=== PATIENT | male | born 1970 | race Caucasian/White ===

== ENCOUNTER 2016-12-28 20:21 | Emergency (ER) | payer SELFPAY ==
[2016-12-28] MEDS ORDERED: SULFAMETHOXAZOLE/TRIMETHOPRIM 800-160 MG TABLET PO ONE (22:12)
[2016-12-28] MEDS ORDERED: IBUPROFEN 600 MG TABLET PO ONE (22:12)
--- NOTE | 2016-12-28 22:14 | ER Document Report ---
ED General - General Chief Complaint: Abscess Stated Complaint: POSSIBLE ABSCESS Time Seen by Provider: 12/28/16 21:41 Notes: Patient is a 46-year-old male, current every day tobacco user, no other major medical problems who presents with 1 week of a left buttock abscess. He does describe the pain as severe severe, constant, throbbing worsened by sitting on the area or touching it. Nothing improves the pain. States he has had a small amount of purulent drainage from the area. He has not seen his primary care doctor regarding today's concerns. He denies any history of similar symptoms in the past. Denies any fever or constitutional symptoms. TRAVEL OUTSIDE OF THE [place] IN LAST 30 DAYS: No - Related Data Allergies/Adverse Reactions: Penicillins Allergy (Verified 12/28/16 22:13) Past Medical History - General Information source: Patient - Social History Smoking Status: Current Every Day Smoker Frequency of alcohol use: None Drug Abuse: None Lives with: Spouse/Significant other Family History: Reviewed & Not Pertinent Patient has suicidal ideation: No Patient has homicidal ideation: No Renal/ Medical History: Denies: Hx Peritoneal Dialysis Past Surgical History: Reports: Hx Abdominal Surgery Review of Systems - Review of Systems Notes: Constitutional: Negative for fever. HENT: Negative for sore throat. Eyes: Negative for visual changes. Cardiovascular: Negative for chest pain. Respiratory: Negative for shortness of breath. Gastrointestinal: Negative for abdominal pain, vomiting or diarrhea. Genitourinary: Negative for dysuria. Musculoskeletal: Negative for back pain. Skin: Positive for right buttock abscess Neurological: Negative for headaches, weakness or numbness. 10 point ROS negative except as marked above and in HPI. Physical Exam - Vital signs Vitals: Temp Pulse Resp BP Pulse Ox 99.5 F 109 H 18 119/73 98 12/28/16 20:51 12/28/16 20:51 12/28/16 20:51 12/28/16 20:51 12/28/16 20:51 Interpretation: Tachycardic Notes: PHYSICAL EXAMINATION: GENERAL: Well-appearing, well-nourished and in no acute distress. HEAD: Atraumatic, normocephalic. EYES: Pupils equal round and reactive to light, extraocular movements intact, sclera anicteric, conjunctiva are normal. ENT: nares patent, oropharynx clear without exudates. Moist mucous membranes. NECK: Normal range of motion, supple without lymphadenopathy LUNGS: Breath sounds clear to auscultation bilaterally and equal. No wheezes rales or rhonchi. HEART: Regular rate and rhythm without murmurs ABDOMEN: Soft, nontender, normoactive bowel sounds. No guarding, no rebound. No masses appreciated. EXTREMITIES: Normal range of motion, no pitting or edema. No cyanosis. NEUROLOGICAL: No focal neurological deficits. Moves all extremities spontaneously and on command. PSYCH: Normal mood, normal affect. SKIN: Warm, Dry, normal turgor, 5.4 cm abscess in the central proximal right buttock Course - Re-evaluation Re-evalutation: 12/28/16 22:12 Patient presents with a proximal right gluteal abscess without any evidence of a rectal abscess. This is not a pilonidal abscess as it was not at the gluteal cleft more off to the proximal right butt cheek. The area was numbed and a large incision and drainage was performed with lysis of significant number of adhesions within the capsule. Approximately 20 cc of purulent material was expressed. The wound was packed with iodoform gauze. Patient will be started on Bactrim 2 tabs twice daily for 5 days. Patient is otherwise well in appearance, vitals within normal limits, does not meet sepsis criteria at time of my assessment. At this time will discharge with return precautions and follow-up recommendations. Verbal discharge instructions given a the bedside and opportunity for questions given. Medication warnings reviewed. Patient is in agreement with this plan and has verbalized understanding of return precautions and the need for primary care follow-up in the next 24-72 hours. - Vital Signs Vital signs: Temp Pulse Resp BP Pulse Ox 98.4 F 107 H 17 129/79 H 100 12/28/16 22:15 12/28/16 22:15 12/28/16 22:15 12/28/16 22:15 12/28/16 22:15 Procedures - Incision and Drainage Right Buttock Type: Complex Anesthetic type: 1% Lidocaine mL's of anesthetic: 5 Blade size: 11 I&D procedure: Betadine prep applied, Iodoform packing placed Incision Method: Incision made by scalpel Amount/type of drainage: 20 cc purulent drainage Notes: 12/29/16 01:45 This was a complex incision and drainage that did require extensive use of forceps for loculation of internal adhesions. A small flap of skin was also removed and iodoform gauze packing was placed. Total procedure time was 35 minutes. Discharge - Discharge Clinical Impression: Abscess of right buttock Condition: Good Disposition: HOME, SELF-CARE Additional Instructions: You were seen for an abscess that required drainage. Please clean this area with soap and water twice daily and apply a topical antibiotic. Dress the area after each cleaning. Please return if you develop fever, vomiting, the pain at the site worsens, you notice spreading redness from the area, or you have any other symptoms that are concerning to you. Prescriptions: Sulfamethoxazole/Trimethoprim [Bactrim Ds Tablet] 2 tab PO BID #20 tablet
[2016-12-28 22:16] VITALS: BP 129/79
== END 2016-12-28 22:29 | disposition home or self-care (01) ==
LOC: ER 20:21
PROC: 0H98XZZ Drainage of Buttock Skin, External Approach (ICD-10-PCS; principal; 2016-12-28)
DX: L02.31 Cutaneous abscess of buttock (principal); F17.200 Nicotine dependence, unspecified, uncomplicated
CPT/HCPCS: 99283

== ENCOUNTER 2017-01-03 20:34 | Emergency (ER) | payer SELFPAY ==
[2017-01-03 20:55] VITALS: BP 115/88
--- NOTE | 2017-01-03 21:44 | ER Document Report ---
ED Skin Rash/Insect Bite/Abscs - General Mode of Arrival: Ambulatory Information source: Patient TRAVEL OUTSIDE OF THE [place] IN LAST 30 DAYS: No - HPI Patient complains to provider of: Other - abscess Quality of rash: Itchy - General Chief Complaint: Abscess Stated Complaint: ABSCESS Time Seen by Provider: 01/03/17 21:20 Notes: Patient is a 46 year old male who presents to the ED with concern for a non healing abscess on his left buttock. Patient had a previous I&D and was placed on Bactrim which he finished yesterday. Patient states he feels better but he is worried about it because it is still wide open. Patient states there is hardness around it and it is itching. Patient denies a fever. Patients adds that 2 days after his initial encounter, he had swelling in the lower part of his back that went away the next day. (MOHAMUD WICK) - Related Data Allergies/Adverse Reactions: Penicillins Allergy (Verified 01/03/17 20:55) Past Medical History - General Information source: Patient - Social History Smoking Status: Current Every Day Smoker Chew tobacco use (# tins/day): No Frequency of alcohol use: None Drug Abuse: None Family History: Reviewed & Not Pertinent Patient has suicidal ideation: No Patient has homicidal ideation: No Renal/ Medical History: Denies: Hx Peritoneal Dialysis Past Surgical History: Reports: Hx Abdominal Surgery Review of Systems - Review of Systems Constitutional: See HPI. denies: Fever EENT: No symptoms reported Cardiovascular: No symptoms reported Respiratory: No symptoms reported Gastrointestinal: No symptoms reported Genitourinary: No symptoms reported Male Genitourinary: No symptoms reported Musculoskeletal: No symptoms reported Skin: See HPI, Other - abscess Hematologic/Lymphatic: No symptoms reported Neurological/Psychological: No symptoms reported Physical Exam - Vital signs Vitals: Temp Pulse Resp BP Pulse Ox 98.8 F 91 12 115/88 H 98 01/03/17 20:52 01/03/17 20:52 01/03/17 20:52 01/03/17 20:52 01/03/17 20:52 - Notes Notes: GENERAL: Alert, interacts well. No acute distress. HEAD: Normocephalic, atraumatic. EYES: Pupils equal, round, and reactive to light. Extraocular movements intact. ENT: Oral mucosa moist, tongue midline. NECK: Full range of motion. Supple. Trachea midline. LUNGS: No respiratory distress. ABDOMEN: Non-distended. EXTREMITIES: Moves all 4 extremities spontaneously. No edema. No cyanosis. NEUROLOGICAL: Alert and oriented x3. Normal speech. PSYCH: Normal affect, normal mood. SKIN: Warm, dry, normal turgor. Area superior aspect of left buttock, not along cleft, no active purulent drainage, is somewhat tender to palpation with good granulation tissue, no fluctuance and can probe approximately 1 cm deep. It is approximately .5 cm wide in diameter. No sign of infection. (MOHAMUD WICK) Course - Re-evaluation Re-evalutation: 01/03/17 21:46 Status post incision and drainage healing well, well-drained, no evidence of premature healing, no remaining infection, no remaining drainage. Patient discharged home, instructed Epsom salts soaks and irrigation. (COURT TRAN) - Vital Signs Vital signs: Temp Pulse Resp BP Pulse Ox 98.8 F 91 12 115/88 H 98 01/03/17 20:52 01/03/17 20:52 01/03/17 20:52 01/03/17 20:52 01/03/17 20:52 Discharge - Discharge Clinical Impression: Abscess of right buttock Condition: Stable Disposition: HOME, SELF-CARE Additional Instructions: Epsom Salt Soaks Soak the wound area in a container of warm epsom salt water. If you can't get the wound area into a bucket or marcelo, use a folded towel soaked in the epsom salt solution and apply to the area. Use clean hot tap water (about the temperature of a very warm bath), mixing in about one (1) teaspoon for every pint of water. Two gallon --> 16 teaspoons Epsom Salts One gallon --> 8 teaspoons Epsom Salts Two quarts --> 4 teaspoons Epsom Salts One quart --> 2 teaspoons Epsom Salts Soak the wound for about 20 minutes while gently moving it around in the water. Repeat this four (4) times a day. You should irrigate it twice a day with the syringe, use gentle pressure. Scribe Attestation: 01/03/17 22:53 I personally performed the services described in the documentation, reviewed and edited the documentation which was dictated to the scribe in my presence, and it accurately records my words and actions. (COURT TRAN) Scribe Documentation - Scribe Written by Johnny:: johnny Camacho, 01/03/2017, 1035 acting as scribe for :: Yvonne
== END 2017-01-03 22:07 | disposition home or self-care (01) ==
LOC: ER 20:34
DX: L02.31 Cutaneous abscess of buttock (principal); F17.200 Nicotine dependence, unspecified, uncomplicated; Z98.890 Other specified postprocedural states; Z88.0 Allergy status to penicillin
CPT/HCPCS: 99282

== ENCOUNTER 2017-02-14 17:29 | Emergency (ER) | payer SELFPAY ==
[2017-02-14] MEDS ORDERED: SULFAMETHOXAZOLE/TRIMETHOPRIM 800-160 MG TABLET PO ONE (18:16)
[2017-02-14] MEDS ORDERED: LIDOCAINE 1% INJ-PF (10 MG/ML) 30 ML SDV INJ ONE (18:16)
--- NOTE | 2017-02-14 18:20 | ER Document Report ---
ED Skin Rash/Insect Bite/Abscs - General Chief Complaint: Abscess Stated Complaint: ABSCESS ON BUTT Time Seen by Provider: 02/14/17 18:04 Notes: The patient is a 46-year-old male, past medical history prior left buttock abscess 2 months ago, presents with 11 days of a right upper buttocks abscess. He said that his left buttocks abscess was I&D and he was placed on Bactrim with resolution. He denies difficulty defecating, painful defecation, blood in stool, fevers, nausea or vomiting. No history of diabetes. TRAVEL OUTSIDE OF THE [place] IN LAST 30 DAYS: No - Related Data Allergies/Adverse Reactions: Penicillins Allergy (Verified 02/14/17 17:33) Past Medical History - General Information source: Patient - Social History Smoking Status: Current Every Day Smoker Chew tobacco use (# tins/day): No Frequency of alcohol use: None Drug Abuse: None Family History: Reviewed & Not Pertinent Renal/ Medical History: Denies: Hx Peritoneal Dialysis Past Surgical History: Reports: Hx Abdominal Surgery Review of Systems - Review of Systems Notes: REVIEW OF SYSTEMS: CONSTITUTIONAL: -fevers, -chills EENT: -eye pain, -difficulty swallowing, -nasal congestion CARDIOVASCULAR:-chest pain, -syncope. RESPIRATORY: -cough, -SOB GASTROINTESTINAL: -abdominal pain, - nausea, -vomiting, -diarrhea GENITOURINARY: -dysuria, -hematuria MUSCULOSKELETAL: -back pain, -neck pain SKIN: +righ buttock abscess HEMATOLOGIC: -easy bruising or bleeding. LYMPHATIC: -swollen, enlarged glands. NEUROLOGICAL: -altered mental status or loss of consciousness, -headache, - neurologic symptoms PSYCHIATRIC: -anxiety, -depression. ALL OTHER SYSTEMS REVIEWED AND NEGATIVE. Physical Exam - Vital signs Vitals: Temp Pulse Resp BP Pulse Ox 98.9 F 90 18 120/75 99 02/14/17 17:33 02/14/17 17:33 02/14/17 17:33 02/14/17 17:33 02/14/17 17:33 - Notes Notes: PHYSICAL EXAMINATION: GENERAL: Well-appearing, well-nourished and in no acute distress. HEAD: Atraumatic, normocephalic. EYES: Pupils equal round and reactive to light, extraocular movements intact, sclera anicteric, conjunctiva are normal. ENT: nares patent, oropharynx clear without exudates. Moist mucous membranes. NECK: Normal range of motion, supple without lymphadenopathy LUNGS: Breath sounds clear to auscultation bilaterally and equal. No wheezes rales or rhonchi. HEART: Regular rate and rhythm without murmurs ABDOMEN: Soft, nontender, normoactive bowel sounds. No guarding, no rebound. No masses appreciated. EXTREMITIES: Normal range of motion, no pitting or edema. No cyanosis. NEUROLOGICAL: Cranial nerves grossly intact. Normal speech, normal gait. Normal sensory and motor exams. PSYCH: Normal mood, normal affect. SKIN: 3 cm pointed fluctuant abscess on superior right buttock, no gluteal cleft or rectal involvement Course - Re-evaluation Re-evalutation: Patient has no perirectal or anal involvement. The abscess is located over the lateral part of the buttocks. Accu-Chek normal. Abscess I&D with some purulent drainage. We will also place patient on Bactrim due to mild surrounding cellulitis and have him follow-up with the surgeon. Given very strict return precautions and he understands. - Vital Signs Vital signs: Temp Pulse Resp BP Pulse Ox 98.9 F 71 18 118/73 97 02/14/17 17:33 02/14/17 19:37 02/14/17 19:37 02/14/17 19:37 02/14/17 19:37 Procedures - Incision and Drainage Right Upper Buttock Time completed: 19:35 Type: Simple Anesthetic type: 1% Lidocaine mL's of anesthetic: 5 Blade size: 11 I&D procedure: Betadine prep applied Incision Method: Incision made by scalpel Amount/type of drainage: 7 mL serosanguinous drainage Discharge - Discharge Clinical Impression: Abscess of right buttock Condition: Stable Disposition: HOME, SELF-CARE Additional Instructions: ABSCESS: You have an abscess (boil). This a pus-forming infection, usually due to staph. Some boils may be left to drain on their own, but most require lancing. From the time the tender lump first appears, it may be three or four days before the abscess is ready to bisi. Local heat and rest help at this stage of treatment. An antibiotic may prevent spread of the infection. Once the abscess is opened, packing may be placed into it. This is done so pus is not sealed inside by premature closure of the cavity. The packing will be removed at your follow-up visit or you may be advised to remove it yourself at home. Sometimes this packing must be replaced a few times during healing. The wound will heal with surprisingly little scar. Depending on the size and location of an abscess, healing can take one to four weeks. You may shower and wash the area around the incision site two or three times a day. Antibiotics may be prescribed, but are usually not necessary after an abscess has been drained. If you develop fever, chills, worsening pain, or increasing swelling in the area, call the doctor or return immediately. POST INCISION AND DRAINAGE: You have had an incision made to allow drainage of an abscess. The incision must remain open so that pus and debris can drain from the wound. If the abscess cavity is large, packing is placed. This keeps the tissues from collapsing and trapping pus inside, while the body shrinks the cavity. The packing may need to be replaced every day or two. The physician will instruct you on the packing. Keep a bulky dressing over the area. Replace it if it becomes saturated with blood or pus. Do not disturb the packing (if present). You may shower and cleanse the area with gentle soap and warm water two or three times a day. Local warmth may be soothing, and may promote faster healing. Return if you develop high fever or chills, or if you note spreading redness, increasing swelling, or increasing tenderness. MRSA CELLULITIS: You have an infection of your skin and underlying soft tissues called cellulitis. This is due to bacteria, which can enter through any break in the skin, or even through an irritated hair follicle. Untreated, cellulitis will usually worsen and may form an abscess which requires draining. Although many bacterial organisms can cause cellulitis and abscess formations, the most likely bacteria is Methicillin-Resistant Staph Aureus, or MRSA for short. Antibiotics are required. Usually, warm packs or warm soaks, and elevation of the infected area are recommended. You should start getting better within 24 to 36 hours. Most infections respond quickly to the right medication. Follow-up care is important, however, to check for abscess (boil) formation, unsuspected foreign body, or resistant infection. If you develop fever, chills, or if the area of infection is becoming rapidly more swollen or painful, call the doctor at once. TRIMETHOPRIM-SULFA: You have been given a prescription for trimethoprim-sulfa (TMS, Septra, Bactrim). This is a combination antibiotic of the sulfa class, often used for urinary tract infections, middle ear infections, bronchitis, shigella intestinal infection, and Pneumocystis pneumonia. TMS is usually well-tolerated. Occasional side effects include nausea and decreased appetite. Septra is not recommended for infants less than two months of age. Do not take this medication if you have experienced severe side effects or allergy to sulfa medicine. You should stop this medicine at once and contact your physician if you develop any rash, joint pain, shortness of breath, bruising, or jaundice ( yellow color in the skin), or if you develop any other new or unusual symptoms. FOLLOW-UP CARE: Most simple abscesses will not require a follow up visit. If you had packing placed in the abscess, remove it as instructed by the physician. If you have been referred to a physician for follow-up care, call the physicians office for an appointment as you were instructed or within the next two days. If you experience worsening or a significant change in your symptoms, return to the Emergency Department at any time for re-evaluation. Prescriptions: Sulfamethoxazole/Trimethoprim [Bactrim Ds Tablet] 2 each PO BID 10 Days tablet Referrals: PEYTON PENNINGTON MD [ACTIVE STAFF] - Follow up as needed
[2017-02-14] MEDS ORDERED: HYDROCODONE/ACETAMINOPHEN 5-325 MG TABLET PO ONE (18:42)
[2017-02-14] MEDS ORDERED: IBUPROFEN 600 MG TABLET PO ONE (18:42)
[2017-02-14 19:41] VITALS: BP 118/73
== END 2017-02-14 19:51 | disposition home or self-care (01) ==
LOC: ER 17:29
PROC: 0H98XZZ Drainage of Buttock Skin, External Approach (ICD-10-PCS; principal; 2017-02-14)
DX: L02.31 Cutaneous abscess of buttock (principal); F17.200 Nicotine dependence, unspecified, uncomplicated; Z88.0 Allergy status to penicillin
CPT/HCPCS: 10060; 99283; 82962; J3490

== ENCOUNTER 2017-07-02 10:34 | Emergency (ER) | payer OTHER ==
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
[2017-07-02] MEDS ORDERED: ACETAMINOPHEN 325 MG TABLET PO ONE (10:58)
[2017-07-02] MEDS ORDERED: IBUPROFEN 800 MG TABLET PO ONE (10:58)
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
[2017-07-02 12:39] VITALS: BP 108/69
== END 2017-07-02 12:39 | disposition home or self-care (01) ==
LOC: ER 10:34
DX: S39.012A Strain of muscle, fascia and tendon of lower back, initial encounter (principal); R10.2 Pelvic and perineal pain; M25.552 Pain in left hip; V44.9XXA Unspecified car occupant injured in collision with heavy transport vehicle or bus in traffic accident, initial encounter; M47.9 Spondylosis, unspecified; F17.200 Nicotine dependence, unspecified, uncomplicated
CPT/HCPCS: 72110; 99283

== ENCOUNTER 2017-12-09 14:35 | Emergency (ER) | payer OTHER ==
[2017-12-09 14:39] VITALS: BP 140/80
--- NOTE | 2017-12-09 14:47 | ER Document Report ---
HPI - HPI Patient complains to provider of: Left buttocks abscess Onset: Other - 8 days Pain Level: 4 Context: 47-year-old male with a history of abscesses developed one in his left buttocks 8 days ago. It is not broken open and is very painful. He is allergic to penicillin. Associated Symptoms: None Exacerbated by: Other - Sitting Relieved by: Denies - ROS ROS below otherwise negative: Yes Systems Reviewed and Negative: Yes All other systems reviewed and negative Past Medical History - General Information source: Patient - Social History Smoking Status: Current Every Day Smoker Frequency of alcohol use: None Drug Abuse: None Occupation: Self-employed Lives with: Spouse/Significant other Family History: Reviewed & Not Pertinent - Medical History Medical History: Negative Renal/ Medical History: Denies: Hx Peritoneal Dialysis Past Surgical History: Reports: Hx Abdominal Surgery Vertical Provider Document - CONSTITUTIONAL Agree With Documented VS: Yes Exam Limitations: No Limitations - INFECTION CONTROL TRAVEL OUTSIDE OF THE [place] IN LAST 30 DAYS: No - NEURO Level of Consciousness: Alert - DERM Integumentary: Abscess - Indurated 2 cm left mid buttocks abscess with a crusted top Course - Vital Signs Vital signs: Temp Pulse Resp BP Pulse Ox 98.6 F 113 H 16 140/80 H 98 12/09/17 14:38 12/09/17 14:38 12/09/17 14:38 12/09/17 14:38 12/09/17 14:38 Procedures - Incision and Drainage Left Buttock Time completed: 16:06 Type: Simple Anesthetic type: 1% Lidocaine mL's of anesthetic: 3 I&D procedure: Betadine prep applied, Sterile dressing applied - packed with corner of 4 x 4 Incision Method: Incision made by scalpel Amount/type of drainage: large pus Discharge - Discharge Clinical Impression: Incision and drainage buttocks abscess Condition: Good Disposition: HOME, SELF-CARE Instructions: Acetaminophen, Ibuprofen (General) ([facility]), Trimethoprim-Sulfa ([facility] ), Warm Packs ([facility]) Additional Instructions: Warm compress Leave the dressing on for 2 days and then remove it After remove the dressing shower with antibiotic soap and washcloth, dry dressing Finish antibiotics Return for any worsening of the symptoms Prescriptions: Ibuprofen [Motrin 800 mg Tablet] 800 mg PO Q8HP PRN #30 tablet PRN Reason: Sulfamethoxazole/Trimethoprim [Sulfamethoxazole-Tmp Ds Tablet] 1 each PO BID # 14 tablet Forms: Return to Work
[2017-12-09] MEDS ORDERED: IBUPROFEN 800 MG TABLET PO ONE (15:09)
[2017-12-09] MEDS ORDERED: ONDANSETRON 4 MG TAB.RAPDIS PO ONE (15:09)
[2017-12-09] MEDS ORDERED: ACETAMINOPHEN 325 MG TABLET PO ONE (15:09)
[2017-12-09] MEDS ORDERED: SULFAMETHOXAZOLE/TRIMETHOPRIM 800-160 MG TABLET PO ONE (15:09)
[2017-12-09] MEDS ORDERED: LIDOCAINE 4%/TETRACAINE 0.5%/EPI 0.18% 5 ML TOPICAL SOLN TOP ONE (15:09)
== END 2017-12-09 16:09 | disposition home or self-care (01) ==
LOC: ER 14:35
DX: L02.31 Cutaneous abscess of buttock (principal); F17.200 Nicotine dependence, unspecified, uncomplicated; Z88.0 Allergy status to penicillin
CPT/HCPCS: 99283; 10060; S0119; J3490

== ENCOUNTER 2018-02-20 18:37 | Emergency (ER) | payer OTHER ==
[2018-02-20] MEDS ORDERED: ONDANSETRON HCL INJ/PF 4 MG/2 ML SDV IV ONE (18:57)
[2018-02-20] MEDS ORDERED: HYDROMORPHONE HCL INJ/PF 2 MG/ML AMPULE IV ONE ×2 (18:57→19:27)
[2018-02-20] MEDS ORDERED: VANCOMYCIN HCL INJ 1000 MG VIAL IV ONE (19:08)
[2018-02-20] MEDS ORDERED: LEVOFLOXACIN 750 MG/D5W RTU 750 MG/150 ML RTUPB IV ONE (19:08)
[2018-02-20] MEDS ORDERED: HYDROMORPHONE HCL INJ/PF 2 MG/ML AMPULE ONE ×2 (19:26→19:46)
[2018-02-20] MEDS ORDERED: CEFEPIME 2 GM/D5W RTU 2 GM/50 ML RTUPB IV ONE (19:27)
[2018-02-20 19:32] LABS: HEMATOCRIT 31.7 % (37.9-51.0); HEMOGLOBIN 10.6 g/dL (13.5-17.0); MEAN CORPUSCULAR HEMOGLOBIN 28.4 pg (27.0-33.4); MEAN CORPUSCULAR HGB CONC 33.3 g/dL (32.0-36.0); MEAN CORPUSCULAR VOLUME 85 fl (80-97); PLATELET COUNT 405 10^3/uL (150-450); RED BLOOD COUNT 3.72 10^6/uL (4.35-5.55); RED CELL DISTRIBUTION WIDTH 14.5 % (11.5-14.0); WHITE BLOOD COUNT 18.1 10^3/uL (4.0-10.5)
--- NOTE | 2018-02-20 19:33 | ER Document Report ---
ED Medical Screen (RME) - General Chief Complaint: Leg Pain Stated Complaint: LEG PAIN Time Seen by Provider: 02/20/18 18:56 Mode of Arrival: Wheelchair Information source: Patient Notes: 47-year-old man status post left lower extremity surgery (tibial fracture repair ) 1 week ago who presents with fever, excruciating (10/10) pain, and tachycardia (155). Allergies: Penicillin Patient appears ill and septic Split cast removed Obvious pus coming from wound bilaterally above the calcaneus. IV fluids started IV antibiotics (levofloxacin and vancomycin) started Dr. Sanchez of orthopedic surgery notified (attempting to send pictures via text to him). TRAVEL OUTSIDE OF THE [place] IN LAST 30 DAYS: No - Related Data Allergies/Adverse Reactions: Penicillins Allergy (Verified 02/20/18 18:38) Past Medical History Renal/ Medical History: Denies: Hx Peritoneal Dialysis Past Surgical History: Reports: Hx Abdominal Surgery, Hx Orthopedic Surgery - Lt leg Physical Exam - Vital signs Vitals: Temp Pulse Resp BP Pulse Ox 100.5 F H 155 H 30 H 167/86 H 99 02/20/18 18:57 02/20/18 18:57 02/20/18 18:57 02/20/18 18:57 02/20/18 18:57 Course - Vital Signs Vital signs: Temp Pulse Resp BP Pulse Ox 100.5 F H 155 H 30 H 167/86 H 99 02/20/18 18:57 02/20/18 18:57 02/20/18 18:57 02/20/18 18:57 02/20/18 18:57 - Laboratory Result Diagrams: 02/20/18 19:16 02/20/18 19:16
[2018-02-20] MEDS ORDERED: KETAMINE HCL INJ 500 MG/10 ML VIAL ONE (19:38)
[2018-02-20] MEDS ORDERED: VANCOMYCIN HCL INJ 500 MG VIAL ONE (19:41)
[2018-02-20 19:48] LABS: ABSOLUTE LYMPHOCYTES# (MANUAL) 0.5 10^3/uL (0.5-4.7); ABSOLUTE MONOCYTES # (MANUAL) 1.3 10^3/uL (0.1-1.4); ABSOLUTE NEUTROPHILS# (MANUAL) 16.3 10^3/uL (1.7-8.2); ANISOCYTOSIS 1+; BASOPHILS % (MANUAL) 0 % (0-2); EOSINOPHILS % (MANUAL) 0 % (0-6); LYMPHOCYTES % (MANUAL) 3 % (13-45); MONOCYTES % (MANUAL) 7 % (3-13); PLATELET COMMENT ADEQUATE; POLYCHROMASIA 1+; SEGMENTED NEUTROPHILS % (MAN) 90 % (42-78); TOTAL CELLS COUNTED 100
[2018-02-20 19:51] LABS: ALANINE AMINOTRANSFERASE 83 U/L (21-72); ALBUMIN 3.8 g/dL (3.5-5.0); ALKALINE PHOSPHATASE 128 U/L (38-126); ANION GAP 13 (5-19); ASPARTATE AMINO TRANSFERASE 59 U/L (17-59); BILIRUBIN,DIRECT 0.9 mg/dL (0.0-0.4); BILIRUBIN,TOTAL 1.3 mg/dL (0.2-1.3); BLOOD UREA NITROGEN 15 mg/dL (7-20); CALCIUM 10.1 mg/dL (8.4-10.2); CARBON DIOXIDE 25 mmol/L (22-30); CHLORIDE 94 mmol/L (98-107); GLUCOSE 121 mg/dL (75-110); SODIUM 131.6 mmol/L (137-145)
[2018-02-20] MEDS: NORMAL SALINE 1000 ML 1,000 ML IV PRN ×2 (19:58→21:15)
--- NOTE | 2018-02-20 19:58 | RADIOLOGY REPORT (SQ) ---
EXAM DESCRIPTION: TIBIA FIBULA LEFT COMPLETED DATE/TIME: 02/20/2018 7:39 pm REASON FOR STUDY: fever, pain, s/p surgery COMPARISON: None. NUMBER OF VIEWS: Two views. TECHNIQUE: Two radiographic images acquired of the left tibia and fibula to include the knee and ank le in at least one projection. LIMITATIONS: None. FINDINGS: MINERALIZATION: Normal. BONES: No acute fracture or dislocation. Posterior tibial hardware appears intact. Previous hardwar e removal from the mid tibial diaphysis and calcaneus. . SOFT TISSUES: Lateral soft tissue swelling. Small amounts of subcutaneous gas. OTHER: No other significant finding. IMPRESSION: No acute fracture or dislocation. Posterior tibial hardware appears intact. Previous h ardware removal from the mid tibial diaphysis and calcaneus.Lateral soft tissue swelling. Small amou nts of subcutaneous gas. TECHNICAL DOCUMENTATION: JOB ID: [id number] [place]-72 2010 [employer]- All Rights Reserved Reading location - IP/workstation name: [employer]
[2018-02-20] MEDS ORDERED: KETAMINE HCL INJ 500 MG/10 ML VIAL IV ONE ×3 (20:07→23:51)
--- NOTE | 2018-02-20 20:11 | ER Document Report ---
ED General - General Chief Complaint: Leg Pain Stated Complaint: LEG PAIN Time Seen by Provider: 02/20/18 18:56 Mode of Arrival: Wheelchair Notes: Patient is a 47-year-old male without chronic medical problems recent tibial fixation with calcaneal pinning who presents with fever, nausea, and severe pain to his left foot. Surgery was done at [facility] on Wednesday, patient was discharged 2 days ago. States he was doing well until last evening when he began to have progressively worsening pain. Throughout the night he states he could not sleep due to a severe, throbbing, constant pain to the right heel. Nothing improves or worsens the pain. He states the pain has only worsened since that time. He has now also complained of fever or constitutional symptoms including chills, nausea and vomiting. He has not contacted his orthopedic surgeon regarding today's concerns. TRAVEL OUTSIDE OF THE [place] IN LAST 30 DAYS: No - Related Data Allergies/Adverse Reactions: Penicillins Allergy (Verified 02/20/18 18:38) Past Medical History - General Information source: Patient - Social History Smoking Status: Current Every Day Smoker Frequency of alcohol use: Occasional Drug Abuse: None Lives with: Family Family History: Reviewed & Not Pertinent Patient has suicidal ideation: No Patient has homicidal ideation: No Renal/ Medical History: Denies: Hx Peritoneal Dialysis Past Surgical History: Reports: Hx Abdominal Surgery, Hx Orthopedic Surgery - Lt leg Review of Systems - Review of Systems Notes: Constitutional: Positive for fever. HENT: Negative for sore throat. Eyes: Negative for visual changes. Cardiovascular: Negative for chest pain. Respiratory: Negative for shortness of breath. Gastrointestinal: Negative for abdominal pain, vomiting or diarrhea. Genitourinary: Negative for dysuria. Musculoskeletal: Positive for right heel pain Skin: Positive for purulent drainage from 2 openings on the right heel Neurological: Negative for headaches, weakness or numbness. 10 point ROS negative except as marked above and in HPI. Physical Exam - Vital signs Vitals: Temp Pulse Resp BP Pulse Ox 100.5 F H 155 H 30 H 167/86 H 99 02/20/18 18:57 02/20/18 18:57 02/20/18 18:57 02/20/18 18:57 02/20/18 18:57 Interpretation: Tachycardic, Tachypneic, Febrile Notes: PHYSICAL EXAMINATION: GENERAL: Appears extremely uncomfortable, diaphoretic in obvious pain HEAD: Atraumatic, normocephalic. EYES: Pupils equal round and reactive to light, extraocular movements intact, sclera anicteric, conjunctiva are normal. ENT: nares patent, oropharynx clear without exudates. Moderately dry mucous membranes. NECK: Normal range of motion, supple without lymphadenopathy LUNGS: Breath sounds clear to auscultation bilaterally and equal. No wheezes rales or rhonchi. HEART: Regular tachycardia without murmurs ABDOMEN: Soft, nontender, normoactive bowel sounds. No guarding, no rebound. No masses appreciated. EXTREMITIES: The external fixation site over the tibia appears well-healing as does the incisional site over the tibial surface. There is copious purulent drainage coming from both the medial and lateral pin entry sites on the calcaneus. NEUROLOGICAL: No focal neurological deficits. Moves all extremities spontaneously and on command. PSYCH: Anxious, somewhat agitated SKIN: Warm, Dry, normal turgor, no rashes or lesions noted. Course - Re-evaluation Re-evalutation: 02/20/18 20:10 Patient presents documentation is delayed as I been at the patient's bedside continuously for the past 30 minutes. In summary the patient presents septic with a heart rate into the 140s, extremely ill in appearance, exuding purulent drainage from the pin sites through his left calcaneus after he had a recent surgery at [facility]. The patient does meet sepsis criteria. He is in exquisite pain. I directed pain management directly at the bedside administering a total of 3 mg of hydromorphone over approximate 20 minutes as well as 2 boluses of ketamine 10 and 12 mg respectively. This did achieve some measure of pain control as prior to this the patient was in obvious excruciating pain. I did discuss the case with Dr. Sanchez the orthopedic surgeon on-call at the bedside. He agrees that this does not appear to be a compartment syndrome, more likely a site infection and tachycardia also related to sepsis. He has recommended transfer back to [facility]. I have contacted and awaiting callback. Will continue to reassess the patient at regular intervals. His antibiotic coverage has been started with vancomycin 1.5 g, cefepime 2 g, levofloxacin was administered prior to my assessment at 750 mg. IV fluids 2 L have also been started. 02/20/18 20:35 I have spoken to the orthopedic surgeon insurance healthcare consultant at [facility] who declines transfer. States we can handle this at [place]. I again discussed with Dr. Fontanez, asked him to immediately contact Dr. Hartley and speak to him directly is clearly I am unable to effectively communicate the severity of this patient' s presentation. He does continue to be tachycardic, current heart rate has improved somewhat at 123 bpm. He does continue to be in a significant amount of pain. 02/20/18 21:48 The patient's pain appears to be much improved at this time he is resting comfortably. The patient has now been accepted by Dr. Hartley at [facility] after Dr. Sanchez spoke directly to him. 02/20/18 22:24 Patient's pain continues to be quite difficult to control. Will give an additional 20 mg of ketamine. 02/21/18 00:58 Patient's pain has remained difficult to control. Transport has arrived for patient transfer and he is appropriate at this time. - Vital Signs Vital signs: Temp Pulse Resp BP Pulse Ox 100.5 F H 155 H 30 H 167/86 H 99 02/20/18 18:57 02/20/18 18:57 02/20/18 18:57 02/20/18 18:57 02/20/18 18:57 - Laboratory Result Diagrams: 02/20/18 19:16 02/20/18 19:16 Laboratory results interpreted by me: 02/20/18 02/20/18 02/20/18 19:16 19:16 19:16 WBC 18.1 H RBC 3.72 L Hgb 10.6 L Hct 31.7 L RDW 14.5 H Seg Neuts % (Manual) 90 H Lymphocytes % (Manual) 3 L Abs Neuts (Manual) 16.3 H VBG pH VBG pCO2 Sodium 131.6 L Chloride 94 L Glucose 121 H Lactic Acid 2.7 H Direct Bilirubin 0.9 H ALT 83 H Alkaline Phosphatase 128 H 02/20/18 19:16 WBC RBC Hgb Hct RDW Seg Neuts % (Manual) Lymphocytes % (Manual) Abs Neuts (Manual) VBG pH 7.49 H VBG pCO2 34.5 L Sodium Chloride Glucose Lactic Acid Direct Bilirubin ALT Alkaline Phosphatase - Diagnostic Test Radiology reviewed: Reports reviewed Critical Care Note - Critical Care Note Total time excluding time spent on procedures (mins): 40 Comments: Critical care time spent obtaining history from patient or surrogate, discussions with consultants, development of treatment plan with patient or surrogate, evaluation of patient's response to treatment, examination of patient , ordering and performing treatments and interventions, ordering and review of laboratory studies, re-evaluation of patient's condition, ordering and review of radiographic studies and review of old charts Discharge - Discharge Clinical Impression: Intractable pain Sepsis Qualifiers: Sepsis type: sepsis due to unspecified organism Qualified Code(s): A41.9 - Sepsis, unspecified organism Postoperative infection Qualifiers: Encounter type: initial encounter Qualified Code(s): T81.4XXA - Infection following a procedure, initial encounter Condition: Fair Disposition: [facility]
[2018-02-20 20:40] LABS: VENOUS BLOOD BASE EXCESS 2.4 mmol/L; VENOUS BLOOD HCO3 25.5 mmol/L (20-32); VENOUS BLOOD PCO2 34.5 mmHg (35-63); VENOUS BLOOD PH 7.49 (7.30-7.42)
[2018-02-20] MEDS: HYDROMORPHONE HCL INJ/PF 2 MG/ML AMPULE IV PRN ×2 (21:17→22:20)
[2018-02-20] MEDS ORDERED: KETOROLAC TROMETHAMINE INJ/PF 30 MG/1 ML SDV IV ONE (23:49)
[2018-02-20] MEDS ORDERED: DIAZEPAM INJ 10 MG/2 ML DISP.SYRIN IV ONE (23:59)
[2018-02-21] MEDS: HYDROMORPHONE HCL INJ/PF 2 MG/ML AMPULE IV PRN (00:06)
[2018-02-21] MEDS ORDERED: ACETAMINOPHEN 325 MG TABLET ONE (00:58)
[2018-02-21] MEDS ORDERED: ACETAMINOPHEN 325 MG TABLET PO ONE (01:02)
[2018-02-21 04:21] VITALS: BP 146/86
== END 2018-02-21 01:07 | disposition short-term general hospital (02) ==
LOC: ER 18:37
DX: T81.4XXA Infection following a procedure, initial encounter (principal); A41.9 Sepsis, unspecified organism; Y83.8 Other surgical procedures as the cause of abnormal reaction of the patient, or of later complication, without mention of misadventure at the time of the procedure; M79.671 Pain in right foot; R50.9 Fever, unspecified; R00.0 Tachycardia, unspecified; R06.82 Tachypnea, not elsewhere classified; R11.2 Nausea with vomiting, unspecified; F17.200 Nicotine dependence, unspecified, uncomplicated; Z88.0 Allergy status to penicillin
CPT/HCPCS: 96376; 99291; 96375; 96365; 96366; 96368; 36415; 87040; 87070; 87205; 85025; 87075; 87077; 80053; 87186; 82803; 83605; 73590; J3360; J3490 ×2; J1885; J1170; J2405; J3370 ×2; J1956; J0692

== ENCOUNTER 2018-03-30 19:47 | Emergency (ER) | payer SELFPAY ==
[2018-03-30 20:06] VITALS: BP 113/67
--- NOTE | 2018-03-30 20:12 | ER Document Report ---
ED Medical Screen (RME) - General Chief Complaint: Leg Swelling Stated Complaint: POST OP PROBLEM Time Seen by Provider: 03/30/18 20:10 Notes: 45 years old male who had a left ankle fracture a month ago which was surgically fixed, presents today with swelling of the calf and lower leg. No difficulty in breathing. Examination-left leg shows swelling which is one half times of the right. Calf swelling and tenderness. TRAVEL OUTSIDE OF THE [place] IN LAST 30 DAYS: No - Related Data Allergies/Adverse Reactions: Penicillins Allergy (Verified 02/20/18 18:38) Past Medical History Renal/ Medical History: Denies: Hx Peritoneal Dialysis Past Surgical History: Reports: Hx Abdominal Surgery, Hx Orthopedic Surgery - Lt leg Physical Exam - Vital signs Vitals: Temp Pulse Resp BP Pulse Ox 97.7 F 79 18 113/67 97 03/30/18 19:56 03/30/18 19:56 03/30/18 19:56 03/30/18 19:56 03/30/18 19:56 Course - Vital Signs Vital signs: Temp Pulse Resp BP Pulse Ox 97.7 F 79 18 113/67 97 03/30/18 19:56 03/30/18 19:56 03/30/18 19:56 03/30/18 19:56 03/30/18 19:56
--- NOTE | 2018-03-30 21:40 | ER Document Report ---
ED General - General Mode of Arrival: Ambulatory Information source: Patient TRAVEL OUTSIDE OF THE [place] IN LAST 30 DAYS: No - HPI Patient complains to provider of: L leg swelling Onset: Other - 4 days ago Associated symptoms: Leg swelling. denies: Body/muscle aches, Chills, Fever, Headache, Nausea - General Chief Complaint: Leg Swelling Stated Complaint: POST OP PROBLEM Time Seen by Provider: 03/30/18 20:10 - HPI Notes: 46-year-old male presents to the emergency department for left calf and ankle swelling times 4 days. Patient had ankle surgery 4 weeks ago after falling off a roof. Patient states that his left calf has been swollen since surgery but it is much worse. He endorses that it is a little sore to touch. Patient denies fever, chills, malaise, shortness of breath, chest pain, nausea, vomiting. Patient is current smoker 1 pack/day 21-year pack history ( DELFIN KOWALSKI) - Related Data Allergies/Adverse Reactions: Penicillins Allergy (Verified 02/20/18 18:38) Past Medical History - General Information source: Patient - Social History Smoking Status: Current Every Day Smoker Cigarette use (# per day): Yes Frequency of alcohol use: None Drug Abuse: None Family History: Reviewed & Not Pertinent Patient has suicidal ideation: No Patient has homicidal ideation: No Renal/ Medical History: Denies: Hx Peritoneal Dialysis Past Surgical History: Reports: Hx Abdominal Surgery, Hx Orthopedic Surgery - Lt leg Review of Systems - Review of Systems Constitutional: denies: Chills, Diaphoresis, Fever EENT: No symptoms reported Cardiovascular: denies: Chest pain, Heart racing, Dyspnea, Dizziness Respiratory: denies: Hurts to breathe, Short of breath Gastrointestinal: No symptoms reported Genitourinary: No symptoms reported Male Genitourinary: No symptoms reported Musculoskeletal: Joint swelling, Leg swelling, Ankle swelling Skin: Change in color - Erythema left calf and foot Hematologic/Lymphatic: No symptoms reported Neurological/Psychological: No symptoms reported -: Yes All other systems reviewed and negative Physical Exam - Vital signs Interpretation: Normal - General General appearance: Appears well, Alert In distress: None - HEENT Head: Normocephalic, Atraumatic Eyes: Normal Pupils: PERRL - Respiratory Respiratory status: No respiratory distress Chest status: Nontender Breath sounds: Normal Chest palpation: Normal - Cardiovascular Rhythm: Regular Heart sounds: Normal auscultation, S1 appreciated, S2 appreciated Murmur: Yes Systolic murmur grade 1-6: 1 Pulses: Normal: Dorsalis pedis Normal capillary refill: Yes - Abdominal Inspection: Normal Distension: No distension Bowel sounds: Normal Tenderness: Nontender Organomegaly: No organomegaly - Back Back: Normal, Nontender - Extremities General upper extremity: Normal inspection, Nontender, Normal color, Normal ROM , Normal temperature General lower extremity: Edema - Left lower extremity edema and erythema. 1+ pitting edema. Compartments are soft. No: Emanuel's sign Left calf in cm: 38 Right calf in cm: 41 - Neurological Neuro grossly intact: Yes Cognition: Normal Orientation: AAOx4 Kristopher Coma Scale Eye Opening: Spontaneous Eugene Coma Scale Verbal: Oriented Kristopher Coma Scale Motor: Obeys Commands Eugene Coma Scale Total: 15 Speech: Normal Motor strength normal: LUE, RUE, LLE, RLE Sensory: Normal - Psychological Associated symptoms: Normal affect, Normal mood - Skin Skin Temperature: Warm Skin Moisture: Dry Skin Color: Normal - Vital signs Vitals: Temp Pulse Resp BP Pulse Ox 97.7 F 79 18 113/67 97 03/30/18 19:56 03/30/18 19:56 03/30/18 19:56 03/30/18 19:56 03/30/18 19:56 Course - Re-evaluation Re-evalutation: 03/30/18 21:[address] Esteves. Concern for DVT with swelling of the leg. Initial read on the venous Doppler showed no DVT or SVT. No concern for critical pathology, compartments are soft, no evidence of cellulitis, skin was warm and dry. Patient discharged home 03/30/18 23:15 (DELFIN KOWALSKI) 03/30/18 23:42 Patient coming in for evaluation of left leg concern for possible DVT SVT. On Doppler is otherwise negative. Examination of the leg does not reveal any signs of infection. Patient is also concerned about dry skin on the bottom of his foot recommend AmLactin. Patient otherwise recommend elevation rest follow- up primary care physician. States understanding patient will be discharged home (ERICK ESTEVES) - Vital Signs Vital signs: Temp Pulse Resp BP Pulse Ox 97.7 F 79 12 113/67 93 03/30/18 19:56 03/30/18 19:56 03/30/18 22:00 03/30/18 19:56 03/30/18 22:00 Discharge - Discharge Clinical Impression: Calf swelling Disposition: HOME, SELF-CARE Instructions: Dependent Edema ([facility]) Additional Instructions: To the hospital today for swelling in her left calf and ankle. While you are at home and resting elevate your leg to the level of your heart or above and that will help promote blood flow and reduce the swelling. If you develop fevers, chills, your leg becomes red and hot please immediately return to the emergency department. If you have severe pain out of proportion to what you are doing please return to the emergency department. For your dry and cracked feet you can use a cream that can be purchased [id number] called AmLactin
--- NOTE | 2018-03-31 08:10 | XCELERA REPORT ---
[address] [facility] [address] Lower Extremity Venous Evaluation Procedure: Color flow and duplex imaging of the veins of the left lower extremity as well as the right Common Femoral vein. Right Sided Venous Evaluation The right common femoral vein is fully compressible. Spontaneous and phasic flow is present in the right common femoral vein. Left Sided Venous Evaluation Normal vessel filling wall to wall, compression and augmentation as well as Colour flow down to the infrageniculate veins. Interpretation Summary No duplex evidence of DVT or obstruction in the left lower extremity nor in the right Common Femoral vein. Name: SALINA MACKENZIE Age: 47 yrs Gender: Male : 1970 Patient Status: Emergency Patient Location: ER Study Date: 03/30/2018 08:29 PM Reason For Study: Rule out left leg DVT/pain and swelling Ordering Physician: LAILA GOODMAN Performed By: Rossana Flynn : LAILA GOODMAN > Jas Casiano
== END 2018-03-30 22:06 | disposition home or self-care (01) ==
LOC: ER 19:47
DX: M79.89 Other specified soft tissue disorders (principal); M25.472 Effusion, left ankle; R60.0 Localized edema; F17.210 Nicotine dependence, cigarettes, uncomplicated; Z98.890 Other specified postprocedural states; Z88.0 Allergy status to penicillin
CPT/HCPCS: 93971; 99283